=== PATIENT | female | born 1980 | race Caucasian/White ===

== ENCOUNTER 2018-04-01 14:00 | Outpatient (RCR) | END 2018-04-05 23:59 | disposition short-term general hospital (02) | PROVIDERS: ATTEND Internal Medicine | DX: M62.838 Other muscle spasm (principal) ==

== ENCOUNTER 2018-05-14 09:10 | Outpatient (CLI) ==
--- NOTE | 2018-05-14 11:33 | MRI ---
EXAM: MRI of the left knee without contrast COMPARISON: Left knee radiographs 04/05/2018. HISTORY: Medial meniscal tear. Previous left knee surgery for injury of the anterior cruciate ligam ent and meniscal tear in 2001. TECHNIQUE: Multiplanar noncontrast MR images of the left knee were acquired using a 1.2 Dhara magnet . 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 The lateral meniscus is intact. There is overa ll diminished size of the medial meniscus with mild blunting of the free edge most pronounced at the body. There is a 1.9 x 0.3 x 0.2 cm hypointense structure extending along the medial aspect of inter condylar notch along the inner margin of the anterior horn/root medial meniscus concerning for a disp laced bucket-handle flap/fragment as seen on images 10-13 of the coronal T2-weighted series, image 18 of the axial series and images 7-10 of the sagittal series. The patient is status post attempted reconstruction of the anterior cruciate ligament with intact gra ft fibers extending from the femoral tunnel through the intercondylar notch and tibial tunnel. No ab normal translation of the tibia relative to the femur. The posterior cruciate ligament is intact. T he medial collateral ligament, lateral collateral ligament complex and posterolateral corner ligament s are intact. The distal quadriceps tendon is intact. Postoperative changes of the patellar tendon related previous graft harvest with postoperative scarring/tendinosis. No significant subluxation of the patella. There is mild thinning of the cartilage of the patella. Small marginal osteophytes in all three comp artments of the knee with mild thinning of the cartilage medial compartment. No evidence of an acute fracture, osteomyelitis or focal marrow lesion. Small amount of fluid within the suprapatellar burs a related to a joint effusion, nonspecific. No popliteal cyst or osteochondral body. IMPRESSION: 1. Linear scarring involving Hoffa's fat pad related to previous arthroscopic surgery. 2. Status post attempted reconstruction of the anterior cruciate ligament with intact graft fibers i dentified. 3. Overall diminished size of the medial meniscus with blunting of the free edge which may in part b e postoperative in nature though with a hypointense structure along the medial aspect of the intercon dylar notch concerning for a meniscal tear with displaced bucket-handle fragment as described. Corre late with physical examination. 4. Postoperative changes of the patellar tendon. 5. Mild tricompartmental osteoarthrosis.
== END 2018-05-14 09:11 | disposition home or self-care (01) ==
LOC: RAD 09:10
PROVIDERS: ATTEND Orthopaedic Surgery
DX: S83.242A Other tear of medial meniscus, current injury, left knee, initial encounter (principal)

== ENCOUNTER 2018-08-02 13:00 | Outpatient (RCR) ==
--- NOTE | 2018-07-27 14:01 | RS.OPPTEV2 ---
Date of Note: 07/27/18 Visit #: 1 Number of visits approved by Insurance: pending Date of Evaluation: 07/27/18 Payer Source: Medicaid Date of Onset/Injury/Change in Status: 06/02/18 Surgery Performed?: Yes Procedure Performed: Operative report notes the following procedure: Left knee arthroscopy with subtotal partial medial meniscectomy, partial lateral menisectomy, and chondroplasty of the patella and medial femoral condyle. Date of Procedure: 06/02/18 Treatment Diagnosis: Left knee pain Prior Level of Function.....Patient was independent with: ADL's, Self Care, Ambulation/Mobility, Community Integration/Access Functional Limitations: Sleep, ADL's, Standing, Bending, Squatting, Ambulation, Community Access/Integration Current Subjective/complaints:: Patient reports having repair of medial meniscus tear of the left knee and possibly repair of something else, but she is unsure what. States she continues to have left knee pain with weight bearing. States she is trying to get away from using a cane, and it now mainly using it for prolonged walking outside the home. States she received a cortisone injection two weeks ago, which helped some, but she is still having pain. States pain will wake her up at night. She continues to ice the knee. States she may get some swelling in the left knee joint if she has been on her feet a lot. States she takes Advil for pain. States she has been unable to exercise because of the knee pain. Treatment Side (optional): Left Medical History Medical History Comments:: adenoidectomy, tonsillectomy, cholecystectomy, bad spasms in her neck and shoulder. Pt has pain in the trapezius. Right ACL reconstruction. Surgical History: Cholecystectomy, Tonsillectomy Surgical History Comments:: ACL repair of both knees, Left was over 10 years ago. Smoking Status: Never smoker Hx Home Medications: Advil Patient's Goals: Her goal is to get relief of left knee pain and be able to return to her usual activities. Pain Assessment - Pain Description Pain Location: medial and anterior aspect of the left knee Current Pain Intensity: not quantified Worst Pain Intensity: 7/10 Functional Outcome Measure LE Functional Scale: 40 (40/80=50% impairment) - G Codes & Severity Modifier G Codes & Modifier: NA Source of G Code score: NA Observation - Observation Inspection: Left knee presents with clean, well healing scope sites, one on each side of the patella tendon and one superior lateral to the patella. Also demonstrates mature incision at the anterior aspect of the knee from her ACL surgery. Demonstrates no significant swelling or discoloration to the knee joint. While patient was sitting in the waiting area, bilateral LE's appear bluish red in color at lower legs and feet. This improves when up and walking. Girth Measurement Lower: Left LE: superior pole of patella: 44.75 cm. mid patella: 42.25 cm. inferior pole of patella: 36.5 cm Gait - Gait Pattern Gait Comments: Patient ambulates without an assistive device in the department with decreased stance on the left LE. She exhibits forward flexion and left trunk lean during left LE stance phase. Demonstrates good heelstrike and toe off. - Left Knee ROM Left Knee Extension: +1 extension Left Knee Flexion: 122 (degrees AROM) Comments: Reports some discomfort on the medial aspect of the knee at end range flexion. - Right Knee ROM Right Knee Extension: full extension Right Knee Flexion: 120 (degrees AROM) - Left Knee Strength Left Knee Extension: 4 Good Left Knee Flexion: 4 Good Comments: Left hip strength generally 4+/5. - Right Knee Strength Right Knee Extension: 4+ Good + Right Knee Flexion: 4+ Good + Comments: Right hip strength generally 4+/5. Palpation Comments:: Reports tenderness with palpation througout the medial aspect of the left knee joint. Also reports tenderness over the patellar tendon and with light compression to the patella. Sensation - Sensation Comments: Reports sensation is intact to light touch. States it feels a little hypersensitive to the touch along the medial region of the left knee. - Treatment Modality: Ultrasound Parameters/Method Applied: X 7 mins 1.0 w/cm2 continuous, X 4 mins pulsed @ 20% 1.0 w/cm2, total 11 mins to medial aspect of of left knee joint. Patient Position: Supine Interventions - Exercise/Activities/Manual Therapy Exercises/Activities: Patient instructed in isometric hip adduction with pillow , SLR's, and very limited range SAQ's. Advised to continue to ice the knee after any prolonged weight bearing. Also reviewed use of the cane. Patient admitted when she uses it, she carries it in the left hand. Demonstrated to patient use of the cane on the opposite side for more normal gait pattern. Advised to use the cane over the next few days with any walking to see if it makes any difference in her pain. Total minutes of Exercise: 11 mins Manual Therapy: NA HOME EXERCISE PROGRAM: isometric hip adduction, SLR's, short range SAQ's ~ 45- 20 degrees knee flexion. - Charges Timed Code Treatment Minutes: 22 mins Total Treatment Time: 52 mins Procedures billed for this date of service:: JOVANNI Clayton, [place] EVALUATION COMPLEXITY LEVEL EVALUATION COMPLEXITY LEVEL: HISTORY: Medium (Hx of ACL of left and right), EXAM OF BODY SYSTEMS: Medium (ROM, MS, sensation, gait, mobility), CLINICAL PRESENTATION: Low, CLINICAL DECISION MAKING: Low Assessment Assessment: Patient presents to therapy almost 2 months s/p repair of bucket handle tear of medial meniscus in the left knee joint. Operative report also shows some debridement of the lateral meniscus and patella chondroplasty. She demonstrates functional AROM, but knee muscles are weak and she continues to have pain with standing and walking. She also reports tenderness along the medial aspect of the knee joint. She demonstrates potential to benefit from modalities and exercises to reduce pain and help her return to her previous activities. Patient Education: Education of diagnosis, Body/Joint mechanics, Home Exercise Program, Home Safety, Education of Plan of Care Rehab Potential: Good Short Term Goals Goal #1: Patient independent and compliant with initial HEP. Goal to be met by: 08/10/18 Goal #2: Tenderness along medial aspect of the left knee decreased to slight. Goal to be met by: 08/10/18 Goal #3: Left quad strength increased to 4/5. Goal to be met by: 08/10/18 Goal #4: Left knee pain <4/10 with ambulation community distances. Goal to be met by: 08/10/18 Usp Goals Goal #1: Pt knows HEP and to continue ex's to maintain functional level at D/C. Goal to be met by: 09/05/18 Goal #2: Score on LE functional scale improved to 60/80. Goal to be met by: 09/05/18 Goal #3: Pt to amb. community distances w/ min. gait deviation and minimal knee pain Goal to be met by: 09/05/18 Plan - Treatment to be Provided Procedures: Therapeutic Exercises, Therapeutic Activity, Gait Training, Neuromuscular Rehab, Manual Therapy, Patient Education Modalities: Electrical Stimulation, Ultrasound/Phonophoresis, Cryotherapy, Hot Packs - Treatment Plan Frequency: 3 X week Duration: 4 weeks Dates of Coin Purse Framer Goals: 09/05/18 Expiration date of current Insurance Approval:: pending - Treatment Code (1) Knee pain Code(s): M25.569 - PAIN IN UNSPECIFIED KNEE Qualifiers: Chronicity: acute Laterality: left Qualified Code(s): M25.562 - Pain in left knee (2) Gait abnormality Code(s): R26.9 - UNSPECIFIED ABNORMALITIES OF GAIT AND MOBILITY Comments: R26.9 (3) S/P medial meniscus repair of left knee Code(s): Z98.890 - OTHER SPECIFIED POSTPROCEDURAL STATES Comments: Z98.890
--- NOTE | 2018-08-02 14:53 | RS.OPPTDN ---
Subjective Date of Note: 08/02/18 Visit #: 2 Number of visits approved by Insurance: pending, requested 8 Date of Evaluation: 07/27/18 Payer Source: Medicaid Treatment Diagnosis: Left knee pain Current Subjective/complaints:: Patient states she has 4-5/10 pain to the L medial knee running down the velez. She says this is mostly present with standing and prolonged walking. She says the cane has helped her with relieving some pressure on her L knee. Sandie states she uses ice for pain control at home and asks if it is ok to work on her leg press machine to strengthen her knee. Reports also difficulty with going up/down 4 steps at home. *Precautions: spasms in muscle - Treatment Modality: Ultrasound Parameters/Method Applied: continuous @ 1.2 w/cm2 x 6 mins to the L medial knee aspect and then pulsed @ 20% 0.8 w/cm2 x 5 mins Patient Position: Supine Interventions - Exercise/Activities/Manual Therapy Exercises/Activities: Patient receives passive heel cord stretching and hamstring for the L LE. Patient performs various general strengthening therex to the same LE: QS, SAQ 1#, SLR, ham curls/DF with green tband, ball squeezes in hooklying all 2x10, hip abd in sidelying x 10, red tband for hip add with knee extended in sidelying x5. Sitting EOB: LAQ, x 10. Standing: Instruction and performs heel strike, toe off (however, somewhat difficult due to wearing flip flops) throughout the dept without cane. Hip abd with hand on wall to promote improved posture as she does forward flex otherwise 2x10. Forward step ups with instruction for proper step sequence multiple times and then corrected patient with step downs. Leg press to instruct for home using ball in between knees for alignment with 15# bilateral LE x 3 reps correctly, safely Total minutes of Exercise: 25 Manual Therapy: NA HOME EXERCISE PROGRAM: isometric hip adduction, SLR's, short range SAQ's ~ 45- 20 degrees knee flexion. - Charges Timed Code Treatment Minutes: 36 Total Treatment Time: 36 Procedures billed for this date of service:: u/s,ex2 Assessment: Patient continues with moderate medial knee pain mostly with ambulation and standing. She has some relief with using "hurrycane." She demo forward flexed amb posture, in which she does correct with instruction. U/s does alleviate pain as well while here, but slightly increases with therex. Continuous crepitus during SAQ/LAQ and pops with initial sit to stand. Patient safely performs low reps of lowest weight leg press and discussed to only perform 10 reps daily at home. Patient Education: Body/Joint mechanics, Home Exercise Program, Education of Plan of Care Patient demonstrates compliance with HEP?: Yes Short Term Goals Goal #1: Patient independent and compliant with initial HEP. Goal to be met by: 08/10/18 Progress towards Goal:: Progressing Goal #2: Tenderness along medial aspect of the left knee decreased to slight. Goal to be met by: 08/10/18 Goal #3: Left quad strength increased to 4/5. Goal to be met by: 08/10/18 Goal #4: Left knee pain <4/10 with ambulation community distances. Goal to be met by: 08/10/18 Correction Goals Goal #1: Pt knows HEP and to continue ex's to maintain functional level at D/C. Goal to be met by: 09/05/18 Goal #2: Score on LE functional scale improved to 60/80. Goal to be met by: 09/05/18 Goal #3: Pt to amb. community distances w/ min. gait deviation and minimal knee pain Goal to be met by: 09/05/18 Plan Dates of Correction Goals: 09/05/18 Expiration date of current Insurance Approval:: 09/05/18 PLAN: Patient to continue BIW to strengthen the L Knee
== END 2018-08-03 23:59 ==
PROVIDERS: ATTEND Orthopaedic Surgery
DX: M25.562 Pain in left knee (principal); G89.29 Other chronic pain; Z98.890 Other specified postprocedural states

== ENCOUNTER 2018-08-17 13:00 | Outpatient (RCR) ==
--- NOTE | 2018-08-06 14:33 | RS.OPPTDN ---
Subjective Date of Note: 08/06/18 Visit #: 3 Number of visits approved by Insurance: pending, requested 8 Date of Evaluation: 07/27/18 Payer Source: Medicaid Treatment Diagnosis: Left knee pain Current Subjective/complaints:: Patient says she continues to have a "stiff" feeling when she is walking. She says that she is taking Advil for pain and uses ice also, which does help a little. She says she did not think she would still be hurting at this point. *Precautions: spasms in muscle - Treatment Modality: Ultrasound Parameters/Method Applied: L medial knee aspect Continuous @ 1.5 w/cm2 x 6 mins and then Pulsed 20% @ 0.6 w/cm2 x 5 mins prior to therex Patient Position: Supine Interventions - Exercise/Activities/Manual Therapy Exercises/Activities: Patient receives passive heel cord stretching and hamstring for the L LE. Patient performs various general strengthening therex to the same LE: QS, SAQ no weight, SLR, ham curls/DF with green tband, ball squeezes in hooklying all 2x10, hip abd with knee extended all 2x10. Sitting: LAQ, x 10. Standing: Instruction and performs heel strike, toe off (however, somewhat difficult due to continued wear of flip flops) throughout the dept without cane. Hip abd with hand on wall to promote improved posture as she does forward flex otherwise 2x10. Hip extension, minisquats with small ball between knees against wall x 10. Intermittent reminders to stand erect and extend the L knee. Reviewed surgical report with patient and mother. Forward step ups with instruction for proper step sequence multiple times and then corrected patient with step downs. Leg press to instruct for home using ball in between knees for alignment with 15# bilateral LE x 3 reps correctly, safely Total minutes of Exercise: 36 Manual Therapy: NA HOME EXERCISE PROGRAM: isometric hip adduction, SLR's, short range SAQ's ~ 45- 20 degrees knee flexion. - Charges Timed Code Treatment Minutes: 47 Total Treatment Time: 47 Procedures billed for this date of service:: u/s, ex2 Assessment: Patient continues to have moderate pain level to the medial aspect of the knee and extends to the patellar tendon region and along tibia. She continues to also demo forward flexed posture, but corrects with cueing. She can ambulate short distances without her cane, but also becomes more forward flexed unless prompted. Patient Education: Education of diagnosis, Body/Joint mechanics, Home Exercise Program, Home Safety, Education of Plan of Care Patient demonstrates compliance with HEP?: Yes Short Term Goals Goal #1: Patient independent and compliant with initial HEP. Goal to be met by: 08/10/18 Progress towards Goal:: Progressing Goal #2: Tenderness along medial aspect of the left knee decreased to slight. Goal to be met by: 08/10/18 Goal #3: Left quad strength increased to 4/5. Goal to be met by: 08/10/18 Goal #4: Left knee pain <4/10 with ambulation community distances. Goal to be met by: 08/10/18 Shelter Goals Goal #1: Pt knows HEP and to continue ex's to maintain functional level at D/C. Goal to be met by: 09/05/18 Goal #2: Score on LE functional scale improved to 60/80. Goal to be met by: 09/05/18 Goal #3: Pt to amb. community distances w/ min. gait deviation and minimal knee pain Goal to be met by: 09/05/18 Plan Dates of Regulatory And Compliance Technician Goals: 09/05/18 Expiration date of current Insurance Approval:: 09/05/18 PLAN: Patient to continue BIW to strengthen and reduce L knee pain
--- NOTE | 2018-08-13 16:27 | RS.OPPTDN ---
Subjective Date of Note: 08/13/18 Visit #: 5 Number of visits approved by Insurance: Pending, requested 8 Date of Evaluation: 07/27/18 Payer Source: Medicaid Treatment Diagnosis: Left knee pain Current Subjective/complaints:: Patient says she was a little sore from performing activities at previous session. She says she remains just as tender to the L knee (medially) as she has. She feels u/s helps her knee to be less stiff and more mobile. Mother asks if Sandie can use Biofreeze to the knee and to also receive a stronger tband to work on at home. *Precautions: spasms in muscle - Treatment Modality: Ultrasound Parameters/Method Applied: continuous @ 1.5 w/cm2 x 6 mins to the medial L knee , then Pulsed @ 20% 0.6 w/cm2 x 5 mins to the same location. Patient Position: Supine (15 mins to the L knee after therex) - Heat/Cryotherapy Treatment: Cryotherapy Interventions - Exercise/Activities/Manual Therapy Exercises/Activities: Patient receives passive heel cord stretching and hamstring for the L LE. Continued PROM. Patient performs various general strengthening therex to the same LE: QS, SAQ no weight, SLR, ham curls/DF with green tband, ball squeezes in hooklying all 2x10, hip abd with knee extended all 2x10. Sitting: LAQ, x 10. Standing: Instruction and performs heel strike , toe off with athletic shoes on. Standing on large Balance [place] foam for weight shifting laterally, then ant/post 2x10. Heel raises x 10, SLS with 1 hand hold onto rail, then 2 finger hold x 10-15 sec's. Minisquats 2x8 reps on foam. Treadmill @ 1.2 mph x 4 mins, then backwards @ 0.5 mph x 20 sec's, and sideways leading with the L hip for side stepping @ 0.5 mph x 3o sec's. Re- educated patient about step sequence with stairs at home. Also, intermittent cueing during treadmill given for heel strike and how to side step safely. Total minutes of Exercise: 31 Manual Therapy: NA HOME EXERCISE PROGRAM: isometric hip adduction, SLR's, short range SAQ's ~ 45- 20 degrees knee flexion. - Charges Timed Code Treatment Minutes: 42 Total Treatment Time: 57 Procedures billed for this date of service:: cp, u/s, ex2 Assessment: Patient continues to amb with "[place]." She is amb independently at home well. She remains with no change in tenderness surrounding the L patella medially despite previous sessions admitting mild improvement. She has full mobility of the L knee compared to the R. Patient is performing HEP, but afraid to perform hamstring stretching due to possible pain it may cause. She seems to feliz additional therex well on treadmill and modified surface for dynamic activities. Bilateral shakiness throughout during minisquats. Patient Education: Body/Joint mechanics, Home Exercise Program, Education of Plan of Care Patient demonstrates compliance with HEP?: Yes Short Term Goals Goal #1: Patient independent and compliant with initial HEP. Goal to be met by: 08/10/18 Progress towards Goal:: Progressing Goal #2: Tenderness along medial aspect of the left knee decreased to slight. Goal to be met by: 08/10/18 Progress towards Goal:: No Change Goal #3: Left quad strength increased to 4/5. Goal to be met by: 08/10/18 Progress towards Goal:: Progressing Goal #4: Left knee pain <4/10 with ambulation community distances. Goal to be met by: 08/10/18 Progress towards Goal:: Progressing (inconsistently progressing) Natural Resources Instructor Goals Goal #1: Pt knows HEP and to continue ex's to maintain functional level at D/C. Goal to be met by: 09/05/18 Goal #2: Score on LE functional scale improved to 60/80. Goal to be met by: 09/05/18 Goal #3: Pt to amb. community distances w/ min. gait deviation and minimal knee pain Goal to be met by: 09/05/18 Plan Dates of Prison Goals: 09/05/18 Expiration date of current Insurance Approval:: 09/05/18 PLAN: Patient to continue BIW x 1 more week
--- NOTE | 2018-08-16 08:41 | RS.OPPTDN ---
Subjective Date of Note: 08/11/18 Visit #: 4 Number of visits approved by Insurance: 8 Date of Evaluation: 07/27/18 Payer Source: Medicaid Treatment Diagnosis: Left knee pain Current Subjective/complaints:: Patient states she still hurts to the medial aspect of the L knee. She says she is performing all HEP and icing as instructed. She asks why she should still be hurting and also she is trying to wean from her cane. Reports tenderness remains throughout the L knee joint and just distal along the tibia. *Precautions: spasms in muscle Pain Assessment - Pain Description Pain Location: Tightness to the posterior L knee - Treatment Modality: Ultrasound Parameters/Method Applied: Continuous @ 1.5 w/cm2 x 5 mins and then Pulsed @ 20 % 0.6 w/cm2 x 5 mins to the L medial knee joint Patient Position: Supine Interventions - Exercise/Activities/Manual Therapy Exercises/Activities: Patient receives passive heel cord stretching and hamstring for the L LE. Continued PROM. Patient performs various general strengthening therex to the same LE: QS, SAQ no weight, SLR, ham curls/DF with green tband, ball squeezes in hooklying all 2x10, hip abd with knee extended all 2x10. Sitting: LAQ, x 10. Standing: Instruction and performs heel strike , toe off with athletic shoes on. Treadmill @ 1.1 mph x 4 mins, then sideways leading with the L hip for side stepping @ 0.5 mph x 3o sec's. Re-educated patient about step sequence with stairs at home. Also, intermittent cueing during treadmill given for heel strike and how to side step safely. Total minutes of Exercise: 34 Manual Therapy: NA HOME EXERCISE PROGRAM: isometric hip adduction, SLR's, short range SAQ's ~ 45- 20 degrees knee flexion. - Charges Timed Code Treatment Minutes: 45 Total Treatment Time: 45 Procedures billed for this date of service:: u/s, ex2 Assessment: Patient continues with mild tenderness at the medial aspect of the L knee during u/s more evident. However, she does request to continue forth with this modality due to feeling it improves her mobility and pain. She is able to perform all other therex without facial grimacing or verbal c/o. She amb forward flexed with her cane, but with corrections she is able to amb independently much more erect and I often encourage her to wean away from the AD due to posture. AD is aligned at the correct height. She tests 4+/5 for L LE grossly today. She maintains full ROM as well. Patient Education: Education of diagnosis, Body/Joint mechanics, Home Exercise Program Patient demonstrates compliance with HEP?: Yes Short Term Goals Goal #1: Patient independent and compliant with initial HEP. Goal to be met by: 08/10/18 Progress towards Goal:: Progressing Goal #2: Tenderness along medial aspect of the left knee decreased to slight. Goal to be met by: 08/10/18 Progress towards Goal:: No Change Goal #3: Left quad strength increased to 4/5. Goal to be met by: 08/10/18 Progress towards Goal:: Met Goal #4: Left knee pain <4/10 with ambulation community distances. 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 Goal to be met by: 09/05/18 Progress towards goal: Progressing Goal #2: Score on LE functional scale improved to 60/80. Goal to be met by: 09/05/18 Comments: Assess next week Goal #3: Pt to amb. community distances w/ min. gait deviation and minimal knee pain Goal to be met by: 09/05/18 Plan Dates of Correction Goals: 09/05/18 Expiration date of current Insurance Approval:: 09/05/18 PLAN: Continue next week BIW for further strengthening.
--- NOTE | 2018-08-17 14:57 | RS.OPPTDN ---
Subjective Date of Note: 08/17/18 Visit #: 6 Number of visits approved by Insurance: Requested 8 Date of Evaluation: 07/27/18 Payer Source: Medicaid Treatment Diagnosis: Left knee pain Current Subjective/complaints:: Patient says she feels like her knee is steady and getting better during amb., but other times it feels like it is loose and will give way. She says she took Advil prior to her appt and continues to use ice at home. Mother adds that Sandie is still using SC in the community. *Precautions: spasms in muscle - Treatment Modality: Ultrasound Parameters/Method Applied: Pulsed @ 20% x 10 mins 0.6 w/cm2 to the L medial aspect of knee Patient Position: Supine - Heat/Cryotherapy Treatment: Cryotherapy (x 15 mins to the L knee following therex supine) Interventions - Exercise/Activities/Manual Therapy Exercises/Activities: Patient receives passive heel cord stretching and hamstring for the L LE. Continued PROM. Patient performs various general strengthening therex to the same LE: QS, SAQ no weight, SLR, ham curls/DF with green tband, ball squeezes in hooklying all 2x10, hip abd with knee extended all 2x10. Bilateral SAQ no weight 2x10. Sitting: LAQ and hip flexion with 2 # 2 x 10. Ham curls with green tband. Stationary bike for prompts to perform for/reverse, but reverse began to increase pain therefore, she was instructed to return to forward revolutions x 4 mins. Ended with Leg press beginning at 15 #, then 30, 45# 2x10 reps. Standing: Instruction and performs heel strike, toe off with athletic shoes on. Encouraged patient again in ice and working on [employer] TID. Explained she has 2 sessions remaining on order. Total minutes of Exercise: 32 Manual Therapy: NA HOME EXERCISE PROGRAM: isometric hip adduction, SLR's, short range SAQ's ~ 45- 20 degrees knee flexion. - Charges Timed Code Treatment Minutes: 42 Total Treatment Time: 57 Procedures billed for this date of service:: cp, u/s, ex2 Assessment: Patient having intermittent pain relief through PT as well as inconsistent feeling of steadiness during gait. She continues to ambulate with SC (hurrycane) as she does not feel confident to amb without it more than within our dept/home. AROM all WNL and MMT grossly is 4+/5. Patient Education: Education of diagnosis, Body/Joint mechanics, Home Exercise Program, Home Safety, Education of Plan of Care Patient demonstrates compliance with HEP?: Yes Short Term Goals Goal #1: Patient independent and compliant with initial HEP. Goal to be met by: 08/10/18 Progress towards Goal:: Progressing Goal #2: Tenderness along medial aspect of the left knee decreased to slight. Goal to be met by: 08/10/18 Progress towards Goal:: No Change Goal #3: Left quad strength increased to 4/5. Goal to be met by: 08/10/18 Progress towards Goal:: Met Goal #4: Left knee pain <4/10 with ambulation community distances. 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 Goal to be met by: 09/05/18 Progress towards goal: Progressing Goal #2: Score on LE functional scale improved to 60/80. Goal to be met by: 09/05/18 Comments: Reassess next week Goal #3: Pt to amb. community distances w/ min. gait deviation and minimal knee pain Goal to be met by: 09/05/18 Plan Dates of Senior Care Goals: 09/05/18 Expiration date of current Insurance Approval:: 09/05/18 PLAN: Continue x 2 more sessions
--- NOTE | 2018-08-20 09:49 | RS.CXNS ---
Date of scheduled appointment: 08/20/18 Type: Cancel
--- NOTE | 2018-08-24 13:22 | RS.CXNS ---
Date of scheduled appointment: 08/24/18 Type: No Show
--- NOTE | 2018-08-25 15:16 | RS.CXNS ---
Date of scheduled appointment: 08/25/18 Type: No Show Reason for Cancel/NS: called pt x3 to answer message/questions as she says this is her final session and inquiring about what our treatment will consist of. No answer at [phone]
--- NOTE | 2018-09-01 10:45 | RS.QUICKDC ---
Discharge from PT Date of Discharge: 09/01/18 Number of Visits: 6 Reason for Discharge: Patient no showed her final visit with cancelling x 2 prior. Patient was contacted x 3 the day of her final session to gather information for reassessment, but without answer from Sandie. No measurements were taken the last scheduled week due to absenteeism. See daily notes for specific treatment. ROM to the L knee was WNL, but she continued with moderate pain to the medial aspect of the knee extending to the proximal tibia with tenderness. Ambulation was forward flexed with SC with intermittent prompts to correct posture and use on the R side. MMT for quads/hams was 4/5 with hip flexion being 4+/5. No contact from pt to continue with POC, but LTG 09/05 and she was made aware several times so that she could have the opportunity to complete by this time and avoid cancelling.
== END 2018-09-03 23:59 ==
PROVIDERS: ATTEND Orthopaedic Surgery
DX: M25.562 Pain in left knee (principal); Z98.890 Other specified postprocedural states